=== PATIENT | female | born 1995 | race Caucasian/White ===

== ENCOUNTER 2016-09-30 00:24 | Emergency (ER) | payer OTHER ==
[~2016-09-30] VITALS: Ht 167.6 cm; Wt 56.7 kg
[~2016-09-30 00:24] MED LIST: NO MEDS TAKEN
[2016-09-30 00:29] VITALS: Ht 167.6 cm; Wt 56.7 kg
[2016-09-30] MEDS ORDERED: LIDOCAINE 1%/EPI 1:200,000 10 ML VIAL SC ONE (01:30)
[2016-09-30] MEDS ORDERED: ACETAMINOPHEN 325 MG TAB PO ONE (01:30)
--- NOTE | 2016-09-30 01:39 | RADRPT ---
PROCEDURE: XR Finger. CLINICAL INDICATION: Trauma, pain. TECHNIQUE: Three views of the left third finger. COMPARISON: None available. FINDINGS: There is a displaced, comminuted fracture of the third distal phalanx tuft. Soft tissue swelling and a skin laceration are also seen in this region. The joint spaces are preserved. No radiopaque fore ign body is identified. IMPRESSION: 1. Displaced, comminuted fracture of the third distal phalanx tuft. 2. No radiopaque foreign body. RPTAT: HTAR .Camilo Chacko MD, MD Date Time Electronically viewed and signed by .Camilo Chacko MD, on 09/30/2016 01:38 .R/
[2016-09-30] MEDS ORDERED: CEPH500C PO ×2 (02:14→02:17)
[2016-09-30] MEDS ORDERED: IBUP-1542 PO (02:14)
[2016-09-30] MEDS ORDERED: HYDR-906 PO (02:14)
[2016-09-30] MEDS ORDERED: CEFAZOLIN 1 GM INJ IM ONE (02:30)
[2016-09-30 02:40] VITALS: BP 102/65; PULSE 100; RESP 18; TEMP 98
--- NOTE | 2016-09-30 02:41 | ERD ---
ER Documentation Chief Complaint Date/Time DATE: 09/30/16 TIME: 02:25 Chief Complaint pt reoprts slamming middle l finger in bathroom door. pt reports no feeling HPI Patient is a 21-year-old female was admitted to the emergency room for a left middle finger injury. Patient's sister closed the door and patient's left middle finger patient's left middle finger was caught between the wooden door and and a wooden frame. Finger did not have any metal contact. Patient complains of left middle finger pain and decreased range of motion. Sensation is still intact per patient. Denies any fever, chest pain or shortness of breath. ROS All systems reviewed and are negative except as per history of present illness. Medications Home Meds Active Scripts Cephalexin* (Cephalexin*) 500 Mg Capsule, 500 MG PO Q6 for 7 Days, #28 CAP Prov:YUN RIVERA 09/30/16 Ibuprofen* (Motrin*) 600 Mg Tab, 600 MG PO Q6H Y for PAIN AND OR ELEVATED TEMP, #30 TAB Prov:YUN RIVERA 09/30/16 Hydrocodone/Acetaminophen (Joanna 5-325 Tablet) 1 Each Tablet, 1 TAB PO Q6H Y for PAIN, #7 TAB Prov:YUN RIVERA 09/30/16 Reported Medications [No Meds Taken] No Conflict Check 07/23/10 Allergies Allergies: Coded Allergies: No Known Drug Allergy (Verified Allergy, Mild, 07/23/10) PMhx/Soc Medical and Surgical Hx: pt denies Medical Hx, pt denies Surgical Hx History of Surgery: No Anesthesia Reaction: No Hx Neurological Disorder: No Hx Respiratory Disorders: No Hx Cardiac Disorders: No Hx Psychiatric Problems: No Hx Miscellaneous Medical Probl: No Hx Alcohol Use: Yes Hx Substance Use: No Hx Tobacco Use: Yes Smoking Status: Current every day smoker Physical Exam Vitals Vital Signs Date Time Temp Pulse Resp B/P Pulse Ox O2 Delivery O2 Flow Rate FiO2 09/30/16 00:29 98.2 105 18 133/81 98 Physical Exam Physical Exam CONST: Well-developed, well-nourished, in no acute distress. HEENT: Atraumatic. Normal Conjunctiva. EOM intact. TM intact. External ear is normal. Clear oropharnyx without erythema. Moist mucous membranes. Supple. Full range of motion. No meningismus. No submandibular induration. RESP: Clear to auscultation bilaterally. No wheezing. CARDIO: Regular rate and rhythm, no murmurs ABD: Soft, non tender, non distended. Normal bowel sounds. No McBurney's point tenderness. No guarding or rigidity. No peritoneal signs. SKIN: No petechiae or rashes BACK: No midline or flank tenderness EXT: Approximately 2 cm laceration on the distal phalanx of the left middle finger wound surrounding the finger nail root. Fingernail is slightly detached from the root. Minimal bleeding noted. Decreased flexion on the distal interphalangeal joint. Sensation intact. NEURO: Awake and alert, appropriate for age Results 24 hrs Current Medications Medications (Trade) Dose Ordered Sig/Macy Route PRN Reason Start Time Stop Time Status Last Admin Dose Admin Acetaminophen (Tylenol Tab) 650 mg ONCE ONCE PO 09/30/16 01:30 09/30/16 01:31 DC 09/30/16 01:20 Lidocaine/ Epinephrine (Xylocaine-Mpf 1%-Epi 1:200,000) 10 ml ONCE ONCE SC 09/30/16 01:30 09/30/16 01:31 DC Cefazolin Sodium (Ancef) 1 gm ONCE ONCE IM 09/30/16 02:30 09/30/16 02:31 PROCEDURE: XR Finger. CLINICAL INDICATION: Trauma, pain. TECHNIQUE: Three views of the left third finger. COMPARISON: None available. FINDINGS: There is a displaced, comminuted fracture of the third distal phalanx tuft. Soft tissue swelling and a skin laceration are also seen in this region. The joint spaces are preserved. No radiopaque foreign body is identified. IMPRESSION: 1. Displaced, comminuted fracture of the third distal phalanx tuft. 2. No radiopaque foreign body. RPTAT: HTAR .Camilo Chacko MD, MD Date Time Electronically viewed and signed by .Camilo Chacko MD, on 09/30/2016 01:38 Procedures/MDM Laceration Repair by me: Anesthesia: 1% lidocaine with epinephrine locally Location: distal phalanx of the left middle finger. Tendon/Joint/Nerves: No injury Foreign body: None detected after copious irrigation and exploration Technique: 3 Simple Interrupted Sutures Complexity: No subcutaneous sutures/mucosal repair/ edge excision Post Closure Length: 2 cm Patient's bleeding was easily controlled in the department and there is no indication of anemia. No evidence of compartment syndrome, neurologic injury, vascular injury, open joint, tendon laceration, or foreign body. Patient is appropriate for outpatient follow up. 48 hour wound check. Scar minimization instructions given. EMERGENCY DEPARTMENT COURSE/MEDICAL DECISION MAKING This is a 21-year-old female who comes to the emergency room secondary to complaints of left middle finger crush injury. The patient was given Tylenol in the department for pain. On re-evaluation, the patient's symptoms improved. Left middle finger x-ray was done and was interpreted by a radiologist. Results shows displaced, comminuted fracture of the third distal phalanx tuft without any foreign body. Suture procedure was done using 3 simple interrupted sutures. Patient tolerated procedure. Patient also received and Ancef IM injection as a prophylaxis for the finger fracture. My primary diagnosis is finger injury. Differential diagnoses considered, included but not limited to fracture, cellulitis, compartment syndrome, tenosynovitis. Pt is hemodynamically stable upon reassessment. The patient was discharged for outpatient management with a prescription for Keflex, Joanna and ibuprofen. The patient was advised to followup with their PMD in 1-2 days and to return to the Emergency Department if there are any new or worsening symptoms. Patient was also instructed to return in 2-3 days for wound check and to follow-up with the hand specialist or orthopedist in 1-2 days. The patient understood and agreed with the diagnosis, treatment and plan. Patient is stable for discharge at this time. Departure Diagnosis: Primary Impression: Fingernail injury Encounter type: initial encounter Laterality: left Qualified Code: S69.92XA - Fingernail injury, left, initial encounter Additional Impressions: Finger laceration Encounter type: initial encounter Qualified Code: S61.219A - Finger laceration, initial encounter Fracture, finger, distal phalanx Encounter type: initial encounter Finger: middle finger Fracture type: closed Fracture alignment: displaced Laterality: left Qualified Code: S62.633A - Closed displaced fracture of distal phalanx of left middle finger, initial encounter Finger pain, left Condition: Fair Patient Instructions: Crush Injury, Hand/Finger, Dislocated Finger, Fracture, Finger (Closed) Referrals: [facility] YOU HAVE RECEIVED A MEDICAL SCREENING EXAM AND THE RESULTS INDICATE THAT YOU DO NOT HAVE A CONDITION THAT REQUIRES URGENT TREATMENT IN THE EMERGENCY DEPARTMENT. FURTHER EVALUATION AND TREATMENT OF YOUR CONDITION CAN WAIT UNTIL YOU ARE SEEN IN YOUR DOCTORS OFFICE WITHIN THE NEXT 1-2 DAYS. IT IS YOUR RESPONSIBILITY TO MAKE AN APPOINTMENT FOR FOLOW-UP CARE. IF YOU HAVE A PRIMARY DOCTOR --you should call your primary doctor and schedule an appointment IF YOU DO NOT HAVE A PRIMARY DOCTOR YOU CAN CALL OUR PHYSICIAN REFERRAL HOTLINE AT IF YOU CAN NOT AFFORD TO SEE A PHYSICIAN YOU CAN CHOSE FROM THE FOLLOWING [facility] [address] [facility] [address] [facility] [address] [facility] [address] [facility] [address] [facility]. [facility]. [address] [facility] [facility] YOU HAVE RECEIVED A MEDICAL SCREENING EXAM AND THE RESULTS INDICATE THAT YOU DO NOT HAVE A CONDITION THAT REQUIRES URGENT TREATMENT IN THE EMERGENCY DEPARTMENT. FURTHER EVALUATION AND TREATMENT OF YOUR CONDITION CAN WAIT UNTIL YOU ARE SEEN IN YOUR DOCTORS OFFICE WITHIN THE NEXT 1-2 DAYS. IT IS YOUR RESPONSIBILITY TO MAKE AN APPOINTMENT FOR FOLOW-UP CARE. IF YOU HAVE A PRIMARY DOCTOR --you should call your primary doctor and schedule and appointment IF YOU DO NOT HAVE A PRIMARY DOCTOR YOU CAN CALL OUR PHYSICIAN REFERRAL HOTLINE AT . IF YOU CAN NOT AFFORD TO SEE A PHYSICIAN YOU CAN CHOSE FROM THE FOLLOWING [facility] INSTITUTIONS: [facility] [address] [place] [address] [facility] [address] [place] [address] [facility] [address] [place] [address] [facility] Urgent Care 7 a.m.- 11 p.m. Every Day of the Week NO APPOINTMENT OR AUTHORIZATION NEEDED [facility] Hours: Mon-Fri 9:00 AM - 5:00 PM Additional Instructions: Return to ED in 2-3 days for wound check. Follow-up with the orthopedic MD or hand specialist in 1-2 days. Follow-up with your primary care physician in 1-2 days. Return to the emergency department immediately should you have any new or worsening symptoms, uncontrolled fevers, or other unexplained symptoms. Take all medications as directed. YUN RIVERA Sep 30, 2016 02:35
== END 2016-09-30 02:41 | disposition home or self-care (01) ==
LOC: FTE 00:24
DX: S61.313A Laceration without foreign body of left middle finger with damage to nail, initial encounter (principal); S62.633A Displaced fracture of distal phalanx of left middle finger, initial encounter for closed fracture; F17.210 Nicotine dependence, cigarettes, uncomplicated; W23.1XXA Caught, crushed, jammed, or pinched between stationary objects, initial encounter; Y92.9 Unspecified place or not applicable
CPT/HCPCS: 12001; 29130; 73140; 96372; J0690; Z7502; Z7610

== ENCOUNTER 2016-10-01 17:57 | Emergency (ER) | payer OTHER ==
[~2016-10-01] VITALS: Wt 65.0 kg
[~2016-10-01 17:57] MED LIST changes: +CEPH500C PO; +HYDR-906 PO; +IBUP-1542 PO
--- NOTE | 2016-10-01 18:34 | ERD ---
ER Documentation Chief Complaint Date/Time DATE: 10/01/16 TIME: 18:31 Chief Complaint L MIDDLE FINGER SUTURED AND HERE FOR 2 DAY WOUND CHECK HPI This is a 21-year-old female presenting to the emergency room for a wound check of a repaired laceration of the left middle finger and comminuted displaced distal fracture that occurred 2 days ago from a finger injury. Patient denies any significant pain, fever. She states that she has not been able to follow- up with her primary care physician yet. Patient states she is compliant with her antibiotics and ibuprofen. ROS All systems reviewed and are negative except as per history of present illness. Medications Home Meds Active Scripts Cephalexin* (Cephalexin*) 500 Mg Capsule, 500 MG PO Q6 for 7 Days, #28 CAP Prov:YUN RIVERA 09/30/16 Ibuprofen* (Motrin*) 600 Mg Tab, 600 MG PO Q6H Y for PAIN AND OR ELEVATED TEMP, #30 TAB Prov:YUN RIVERA 09/30/16 Hydrocodone/Acetaminophen ([place] 5-325 Tablet) 1 Each Tablet, 1 TAB PO Q6H Y for PAIN, #7 TAB Prov:YUN RIVERA 09/30/16 Reported Medications [No Meds Taken] No Conflict Check 07/23/10 Allergies Allergies: Coded Allergies: No Known Drug Allergy (Verified Allergy, Mild, 07/23/10) PMhx/Soc History of Surgery: No Anesthesia Reaction: No Hx Neurological Disorder: No Hx Respiratory Disorders: No Hx Cardiac Disorders: No Hx Psychiatric Problems: No Hx Miscellaneous Medical Probl: No Hx Alcohol Use: Yes Hx Substance Use: No Hx Tobacco Use: Yes Physical Exam Vitals Vital Signs Date Time Temp Pulse Resp B/P Pulse Ox O2 Delivery O2 Flow Rate FiO2 10/01/16 18:01 97.9 66 20 111/57 100 Physical Exam General: WD/WN, in no apparent distress, non-toxic appearing HENT: NC/AT Eyes: Conjunctiva normal Neck: Supple Pulm: Normal labored breathing CV: Good capillary refill GI: Non-distended, no guarding Back: No masses Ext: No clubbing, cyanosis, or edema Neuro: Moves on all fours, no neuro deficits, sensation intact Skin: Linear 1.5 cm laceration inferior to nail bed of the left middle finger, sutures intact, no evidence of purulence or induration Psych: Normal mood Procedures/MDM This is a 21-year-old female presenting to the emergency department with repaired laceration of open fracture of the tuft of the distal phalanx of the left middle finger that occurred 2 days ago. On examination sutures were intact , there was no evidence of dehiscence or purulence or induration. I have low suspicion for cellulitis, osteomyelitis or flexor synovitis. Patient is compliant with her antibiotics. Patient is suitable to follow-up with her primary care physician for orthopedic follow-up. I have redressed the wound with the metal splint. I discussed return to the ER for any worsening signs or symptoms. Patient understands and agrees with this plan I have consulted by supervising physician Dr. Deleon for this case and he agrees with plan Departure Diagnosis: Primary Impression: Encounter for wound re-check Additional Impression: Open fracture of tuft of distal phalanx of finger with routine... Condition: Stable Patient Instructions: Wound Care, Wound Check, Lac F/U (No Infection) Referrals: [facility] YOU HAVE RECEIVED A MEDICAL SCREENING EXAM AND THE RESULTS INDICATE THAT YOU DO NOT HAVE A CONDITION THAT REQUIRES URGENT TREATMENT IN THE EMERGENCY DEPARTMENT. FURTHER EVALUATION AND TREATMENT OF YOUR CONDITION CAN WAIT UNTIL YOU ARE SEEN IN YOUR DOCTORS OFFICE WITHIN THE NEXT 1-2 DAYS. IT IS YOUR RESPONSIBILITY TO MAKE AN APPOINTMENT FOR FOLOW-UP CARE. IF YOU HAVE A PRIMARY DOCTOR --you should call your primary doctor and schedule and appointment IF YOU DO NOT HAVE A PRIMARY DOCTOR YOU CAN CALL OUR PHYSICIAN REFERRAL HOTLINE AT . IF YOU CAN NOT AFFORD TO SEE A PHYSICIAN YOU CAN CHOSE FROM THE FOLLOWING [facility]IONS: [facility] [address] [place] [address] [facility] [address] [place] [address] [facility] [address] [place] [address] [facility] URGENT CARE/SPECIALTIES Additional Instructions: FOLLOW UP WITH YOUR PRIMARY CARE PHYSICIAN TOMORROW.Return to this facility if you are not improving as expected. Take all medicines as directed. Return to this facility if you are not improving as expected. CINTHYA ZAVALA PA-C Oct 01, 2016 18:34
== END 2016-10-01 18:24 | disposition home or self-care (01) ==
LOC: E/R 17:57
DX: Z48.01 Encounter for change or removal of surgical wound dressing (principal); S62.633D Displaced fracture of distal phalanx of left middle finger, subsequent encounter for fracture with routine healing; X58.XXXD Exposure to other specified factors, subsequent encounter; Z87.891 Personal history of nicotine dependence
CPT/HCPCS: 99281

== ENCOUNTER 2016-10-03 23:03 | Emergency (ER) | payer OTHER ==
[~2016-10-03] VITALS: Ht 162.6 cm; Wt 59.0 kg
[2016-10-03 23:07] VITALS: Ht 162.6 cm; Wt 59.0 kg
--- NOTE | 2016-10-04 01:28 | ERD ---
ER Documentation Chief Complaint Date/Time DATE: 10/04/16 TIME: Chief Complaint WOUND CHECK HPI 21 y/o female presents to ED for wound/suture site check on her left middle/ long distal finger. Was here last Wednesday for a lac repair and finger splint placement. Had a displaced, comminuted fracture of the third distal phalanx tu. Was discharged with antibiotics and referred to an orthopedic doctor. Stated that she has an appointment this coming Wednesday with her orthopedic doctor but she came to make sure that her wound or suture site "is okay." Denies headache, loss of consciousness, dizziness, blurry vision, changes in vision, photophobia, facial pain, ear pain, throat pain, difficulty swallowing, neck pain, shoulder pain, chest pain, cough, hemoptysis, abdominal pain, back pain, loss of appetite, nausea, vomiting, hematochezia, diarrhea, constipation, urinary symptoms, , the possibility of being , bladder and bowel incontinences, extremity weakness, extremity tenderness, numbness or tingling sensation, difficulty walking, recent travel, recent exposure to illness, fever, chills. Allergy: NKA PMH: Denies Family medical history: Denies AO LMP: 08/23/2016 Medications: Keflex Surgery: Denies Primary Social History: Right handed. Not working at this time. Smokes medical marijuana. Denies smoking cigarettes, use of alcohol, use of illegal drugs. ROS All systems reviewed and are negative except as per history of present illness. Medications Home Meds Active Scripts Cephalexin* (Cephalexin*) 500 Mg Capsule, 500 MG PO Q6 for 7 Days, #28 CAP Prov:YUN RIVERA 09/30/16 Ibuprofen* (Motrin*) 600 Mg Tab, 600 MG PO Q6H Y for PAIN AND OR ELEVATED TEMP, #30 TAB Prov:YUN RIVERA 09/30/16 Hydrocodone/Acetaminophen ([place] 5-325 Tablet) 1 Each Tablet, 1 TAB PO Q6H Y for PAIN, #7 TAB Prov:YUN RIVERA 09/30/16 Reported Medications [No Meds Taken] No Conflict Check 07/23/10 Allergies Allergies: Coded Allergies: No Known Drug Allergy (Verified Allergy, Mild, 07/23/10) PMhx/Soc Medical and Surgical Hx: pt denies Medical Hx, pt denies Surgical Hx History of Surgery: No Anesthesia Reaction: No Hx Neurological Disorder: No Hx Respiratory Disorders: No Hx Cardiac Disorders: No Hx Psychiatric Problems: No Hx Miscellaneous Medical Probl: No Hx Alcohol Use: Yes Hx Substance Use: Yes (marijuana) Hx Tobacco Use: No Smoking Status: Never smoker Physical Exam Vitals Vital Signs Date Time Temp Pulse Resp B/P Pulse Ox O2 Delivery O2 Flow Rate FiO2 10/03/16 23:07 98.3 82 18 124/63 99 Physical Exam CONSTITUTIONAL: Well-appearing; well-nourished; in no apparent distress. HEAD: Normocephalic; atraumatic. EYES: Conjunctiva clear, sclera non-icteric, EOM intact. PERRL Ears: Hearing intact. EACs clear, TMs non-bulging, non-inflamed, translucent & mobile, ossicles normal appearance, No obstructions, no erythema, no discharges Nose: No obstructions. No polyps. No external lesions. Mucosa non-inflamed. No external lesions, septum and turbinates normal. No rhinorrhea. No discharges. Frontal sinus is non-tender to palpation. Maxillary sinus is non-tender to palpation. MOUTH: Moist mucous membranes, no lesion, no obstructions, no vesicles, no thrush, patent airway Throat: Uvula in midline. Right tonsil is +1 with no erythema, no exudate. Left tonsil is +1 with no erythema, no exudate. Tolerating secretions well. Good gag reflex. Patent airway. Neck: Supple, without lesions, bruits, or adenopathy. No mass. Thyroid non- enlarged and non-tender to palpation. CHEST: Symmetrical chest. Respirations even and not labored. No retractions noted. CARDIOVASCULAR: Normal S1, S2. RRR. No murmurs, gallops. RESPIRATORY: Normal chest excursion with respiration; breath sounds clear and equal bilaterally; no wheezes, rhonchi, or rales. Breathing even and unlabored. Speaking in clear, full, and complete sentences w/ ease. ABDOMEN: Normal bowel sounds normal. Soft, round, non-distended, non-guarding, no tenderness, no rebound, no organomegaly, no masses, no pulsating abdominal mass. No hernia. No peritoneal signs. : No CVA tenderness. BACK: Symmetrical shoulder. Spine is midline without deformity, tenderness. No evidence of trauma or deformity. PELVIS: Stable pelvis. No evidence of trauma or deformity. MUSCULOSKELETAL: Normal gait and station. No misalignment, asymmetry, crepitation, defects, tenderness, masses, effusions, decreased range of motion, instability, atrophy or abnormal strength or tone in the head, neck, spine, ribs , pelvis or extremities. No calf tenderness. Distal long/middle finger(dorsal) suture site is not infected. No obvious signs and symptoms of bleeding or infection. Circulation and sensation is intact. No neurovascular deficits. NEUROVASCULAR: Distal pulses are present. Pedal pulse are present, equal, and normal. Capillary refills are < 2 seconds. NEUROLOGIC: Alert and oriented x4. Speaks full and clear sentences. Cranial Nerves II-XII normal. Sensation to pain, touch, and proprioception normal. Grossly unremarkable. No neurologic deficits. Romberg test is negative. PSYCHOLOGICAL: The patients mood and manner are appropriate. No hallucinations , delusions. Not SI. Not HI. Has the capacity to decide for self SKIN: Normal for age and ethnicity; warm; dry; good turgor; no apparent lesions or exudates. No rashes, hives, discoloration. Distal long/middle finger(dorsal) suture site is not infected. No obvious signs and symptoms of bleeding or infection. Circulation and sensation is intact. No neurovascular deficits. Procedures/MDM Examination: Please see physical examination. Disease process, medical treatment was explained to the patient and family member. They verbalized understanding and agreed with the medical treatment, and follow-up care. Treatment: wound care. splint application. Re-evaluation: Circulation and and sensation is intact. No neurovascular deficits prior to and after the application of splint. Consultation: None Differential diagnosis: wound and suture site check Medical decision makin21 y/o female presents to ED for wound/suture site check on her left middle/long distal finger. Was here last Wednesday for a lac repair and finger splint placement. Had a displaced, comminuted fracture of the third distal phalanx tu. Was discharged with antibiotics and referred to an orthopedic doctor. Stated that she has an appointment this coming Wednesday with her orthopedic doctor but she came to make sure that her wound or suture site "is okay." Patient's complaint, my physical findings are consistent with final diagnosis of wound/suture site check. No obvious signs and symptoms of bleeding or infection. No signs of compartment syndrome. No neurovascular deficits. Medications prescribed are the following: Patient and family member are made aware of the side effects and adverse reactions of the medications prescribed. Instructed on when to seek emergent and medical attention in case allergic/anaphylactic reactions or severe side effects and or adverse reactions to medications. Patient and family member verbalized understanding. Patient instructed Instructed to follow-up with his PCP in 24-48 hours. PCP to refer patient to Orthopedic doctor in 24-48 hours. Instructed to Call 911 for chest pain, shortness of breath. Advised to come back here in ED as soon as possible for severity of symptoms which includes but not limited to: any new symptoms; shortness of breath/difficulty of breathing; cardiovascular changes; severe gastrointestinal symptoms; signs and symptoms of bleeding and or infection; signs of compartment syndrome/neurovascular changes; neurological changes/deficits. Patient and family member verbalized understanding. Upon discharge, patient is alert and oriented x 4, speaks full and clear sentences, denies pain, has no neurological deficits, has no neurovascular deficits, difficulty of breathing. Breathing even and unlabored. Lung sounds are clear to auscultation. Not in distress. Appears comfortable. Ambulatory with steady gait. Appears satisfied with care provided here in ED. Departure Condition: Good Additional Instructions: Follow-up with PCP in the next 24-48 hours. Community resources was given. PCP to refer patient to orthopedic doctor in the next 24-48 hours. Patient verbalized understanding. Patient agreed with follow-up care. REGAN CHEN Oct 04, 2016 01:28
== END 2016-10-04 02:00 | disposition home or self-care (01) ==
LOC: FTE 23:03
DX: Z48.01 Encounter for change or removal of surgical wound dressing (principal)
CPT/HCPCS: 99282

== ENCOUNTER 2016-10-09 18:04 | Emergency (ER) | payer OTHER ==
[~2016-10-09] VITALS: Ht 157.5 cm; Wt 57.5 kg
[2016-10-09 18:20] VITALS: Ht 157.5 cm; Wt 57.5 kg
--- NOTE | 2016-10-09 18:36 | ERD ---
ER Documentation Chief Complaint Date/Time DATE: 10/09/16 TIME: 18:31 Chief Complaint ENCOUNTER FOR SUTURE REMOVAL LT 3RD FINGER HPI This is a 21-year-old female who presents to the emergency department today for suture removal of a finger laceration that she sustained a couple of weeks ago. She states that she still has some antibiotics left and states that it is upsetting her stomach a little bit. States that she has an appointment with her primary care physician for referral for authorization in 3 days. Denies any fevers or chills. ROS All systems reviewed and are negative except as per history of present illness. Medications Home Meds Active Scripts Cephalexin* (Cephalexin*) 500 Mg Capsule, 500 MG PO Q6 for 7 Days, #28 CAP Prov:YUN RIVERA 09/30/16 Ibuprofen* (Motrin*) 600 Mg Tab, 600 MG PO Q6H Y for PAIN AND OR ELEVATED TEMP, #30 TAB Prov:YUN RIVERA 09/30/16 Hydrocodone/Acetaminophen ([place] 5-325 Tablet) 1 Each Tablet, 1 TAB PO Q6H Y for PAIN, #7 TAB Prov:YUN RIVERA 09/30/16 Reported Medications [No Meds Taken] No Conflict Check 07/23/10 Allergies Allergies: Coded Allergies: No Known Drug Allergy (Verified Allergy, Mild, 07/23/10) PMhx/Soc History of Surgery: No Anesthesia Reaction: No Hx Neurological Disorder: No Hx Respiratory Disorders: No Hx Cardiac Disorders: No Hx Psychiatric Problems: No Hx Miscellaneous Medical Probl: No Hx Alcohol Use: Yes Hx Substance Use: Yes (marijuana) Hx Tobacco Use: No Physical Exam Vitals Vital Signs Date Time Temp Pulse Resp B/P Pulse Ox O2 Delivery O2 Flow Rate FiO2 10/09/16 18:20 98.0 61 16 117/71 98 Physical Exam Const: No acute distress Head: Atraumatic Eyes: Normal Conjunctiva ENT: Normal External Ears, Nose and Mouth. Neck: Full range of motion..~ No meningismus. Resp: Clear to auscultation bilaterally Cardio: Regular rate and rhythm, no murmurs Skin: No petechiae or rashes. Evidence of healing wound left third middle finger MSK: Left third middle finger with evidence of 3 sutures and subungual hematoma. No erythema or warmth. Pulses 2+. Distal neurovascularly intact. Neur: Awake and alert Psych: Normal Mood and Affect Procedures/MDM This is a 21-year-old female who presents to the emergency department today for suture removal of a laceration that she sustained on September 30. At that time patient had injured her finger after slamming it in a door. Patient had a displaced comminuted fracture of the third distal phalanx tuft. Patient then returned for a wound check follow-up on every and again on October 03. Today on physical exam there is no erythema or warmth. I did remove 3 sutures without complication. There was no bleeding. Wound was again redressed here in the [facility] area of the emergency department. Patient is afebrile and otherwise well-appearing. I have low suspicion for sepsis, deep space infection or cellulitis. I did explain to the patient that she needs to continue taking her antibiotics as prescribed and to take them with food to help prevent upset stomach. I also cleaned to the patient that she need to keep her appointment for the orthopedic referral this coming week. Patient was not wearing her splint and she was instructed to go back into the splint as she has a fracture at the distal phalanx. Patient understood. At this time the patient is stable for discharge and outpatient management. Patient should follow up with their PCP in the next 1-2 days. They may return to the emergency department sooner for any persistent or worsening of symptoms. Patient understood and agreed with the plan. Departure Diagnosis: Primary Impression: Encounter for removal of sutures Condition: Fair Patient Instructions: Suture Removal, No Complication Referrals: [facility] (PCP) Additional Instructions: Call your primary care doctor TOMORROW for an appointment during the next 1-2 days.See the doctor sooner or return here if your condition worsens before your appointment time. Keep your appointment with the forest resource specialist Continue taking antibiotics as prescribed. Take with food to avoid stomach upset Please finger back in splint SHWETHA GAR PA-C Oct 09, 2016 18:36
== END 2016-10-09 18:32 | disposition home or self-care (01) ==
LOC: E/R 18:04
DX: Z48.02 Encounter for removal of sutures (principal)
CPT/HCPCS: 99281

== ENCOUNTER 2016-11-12 15:11 | Day surgery (SDC) | payer OTHER ==
[2016-11-11 14:03] VITALS: BMI 22.3
[~2016-11-12] VITALS: Ht 162.6 cm; Wt 56.8 kg
[2016-11-12] VITALS (10 sets, daily range): BP systolic 93–114; BP diastolic 51–72; PULSE 53–74; RESP 14–18; Ht 162.6 cm; Wt 56.8 kg
[~2016-11-12 15:11] MED LIST changes: +LACTATED RINGER'S 1,000 ML IV* SCH
--- NOTE | 2016-11-12 16:04 | HPN ---
Date/Time of Note Date/Time of Note DATE: 11/12/16 TIME: 16:03 Interval H&P Admission Note Pt. seen H&P reviewed: No system changes BRITTANY GUILLEN Nov 12, 2016 16:04
[2016-11-12] MEDS ORDERED: CLINDAMYCIN 600 MG/D5W (PMX) 50 ML IVPB SCH (17:00)
[2016-11-12] MEDS ORDERED: BUPIVACAINE 0.5% (SDV) 30 ML INJ ONE (18:24)
[2016-11-12] MEDS ORDERED: LIDOCAINE 1% (MPF) 30 ML INJ ONE (18:24)
[2016-11-12] MEDS ORDERED: PROPOFOL 20 ML ONE ×2 (18:33→18:53)
[2016-11-12] MEDS ORDERED: CLINDAMYCIN 600 MG/D5W (PMX) 50 ML IVPB ONE (18:33)
[2016-11-12] MEDS ORDERED: FENTAnyl 50 MCG/ML VIAL ONE (18:33)
[2016-11-12] MEDS ORDERED: MIDAZOLAM 1 MG/ML 2 ML INJ ONE (18:33)
[2016-11-12] MEDS ORDERED: ACETAMINOPHEN 1000MG/100ML IV 100 ML ONE (19:01)
[2016-11-12] MEDS ORDERED: METOCLOPRAMIDE 10 MG INJ ONE (19:02)
[2016-11-12] MEDS ORDERED: KETOROLAC 30 MG INJ ONE (19:02)
[2016-11-12] MEDS ORDERED: ONDANSETRON 4 MG INJ ONE (19:02)
[2016-11-12] MEDS ORDERED: DEXAMETHASONE 4 MG/ML 1 ML INJ ONE (19:02)
[2016-11-12] MEDS ORDERED: DIPHENHYDRAMINE 50 MG INJ IV PRN (19:30)
[2016-11-12] MEDS ORDERED: MEPERIDINE 25 MG INJ IV PRN (19:30)
[2016-11-12] MEDS ORDERED: morphine (1 MG/ML) 10ML SYRINGE IV PRN ×3 (19:30)
[2016-11-12] MEDS ORDERED: HYDROmorphONE (0.2 MG/ML) 10ML SYG IV PRN ×3 (19:30)
[2016-11-12] MEDS ORDERED: ONDANSETRON 4 MG INJ IV PRN (19:30)
[2016-11-12] MEDS ORDERED: METOCLOPRAMIDE 10 MG INJ IV PRN (19:30)
[2016-11-12] MEDS ORDERED: HYDROCODONE/APAP (5/325) TAB PO PRN (20:00)
--- NOTE | 2016-11-12 20:29 | OPR ---
DATE OF OPERATION: 11/12/2016 SURGEON: Tom Boone MD ANESTHESIA: Local plus MAC. PREOPERATIVE DIAGNOSES: 1. Left middle finger, distal phalanx fracture. 2. Left middle finger nailbed injury with deformity. POSTOPERATIVE DIAGNOSIS: 1. Left middle finger, distal phalanx fracture. 2. Left middle finger nailbed injury with deformity. PROCEDURES: 1. Open treatment of left middle finger distal phalanx fracture. 2. Primary repair of left middle finger nailbed injury. OPERATIVE FINDINGS: Chronic-appearing injury to the left middle finger nailbed with deformity and persistent instability of the distal fracture fragment. INDICATION FOR PROCEDURE: This is a 21-year-old female, who was seen in clinic 4 weeks after injury to the left middle finger. She had significant deformity of her nail bed, and avulsion of the nail plate proximally. I discussed the options with her, and given the significant deformity and persistent pain, the patient elected to proceed with surgical intervention, understanding the risks and benefits. DESCRIPTION OF PROCEDURE: The patient was seen in the preoperative area and all further questions were answered. Again, she gave informed consent, understanding the risks and benefits. She is taken to operative suite and placed in supine position. The patient was placed under sedation. Clindamycin was administered for perioperative antibiotics, and the left upper extremity was prepped with ChloraPrep stick, and draped in usual sterile fashion. A digital block was performed at the base of the left middle finger using 0.5% Marcaine and 1% lidocaine. The finger was elevated, and a [place] drain was used as a tourniquet and secured with a curved hemostat. There was significant deformity over the left middle finger distal phalanx and nail plate, with superficial elevation of the nail plate and nailbed deformity underneath. The nail plate was removed, revealing a deformity of the nailbed. At the mid to distal aspect of the nailbed, there was significant scar formation and deformity. The previous injury to the nail bed was easily identifiable, and this area was debrided to get down to nice, clean edges of the nail bed. The underlying fracture was still unstable and bony callus was causing some of the deformity, thus was also debrided and superficial callus excised. After the fracture site had been appropriately cleaned out, and the scar tissue from the nailbed injury had been excised and debrided, the wound was copiously irrigated and the nail bed approximated nicely with no further deformity. 6-0 Monocryl suture was used to repair the nailbed, and final appearance of the nail bed was smooth and flat. Xeroform was placed under the proximal nail fold and also over the remainder of the wound. Gauze was placed, followed by a Coban dressing wrapped lightly. A finger splint was also placed to protect the distal phalanx fracture. This was secured with Coban. Tourniquet was deflated after 34 minutes, and patient was awakened from anesthesia. She was taken to the postoperative suite in stable condition, and tolerated procedure well without complication. SPECIMENS: None. ESTIMATED BLOOD LOSS: 5 mL. COUNTS: Sponge, instruments, and needle counts correct. CONDITION ON DISCHARGE: Stable. FLUOROSCOPIC IMAGES: Fluoroscopic time 0.1 seconds. CONDITION ON DISCHARGE: Stable. Dictated By: TOM JACKSON/ZAID Conf#: [id number] DID#: [id number]
== END 2016-11-12 20:36 | disposition home or self-care (01) ==
LOC: SDS 15:11
PROVIDERS: ATTEND Orthopaedic Surgery Hand Surgery
DX: S62.633A Displaced fracture of distal phalanx of left middle finger, initial encounter for closed fracture (principal); X58.XXXA Exposure to other specified factors, initial encounter; Y92.89 Other specified places as the place of occurrence of the external cause
CPT/HCPCS: 26765; 84703; J0131; J1100; J1885; J2250; J2405; J2765; J3010; Z7512; Z7610; 73140